=== PATIENT | male | born 2005 | race Caucasian/White ===

== ENCOUNTER 2024-08-13 17:29 | Emergency (ER) | payer BC, SELFPAY ==
[2024-08-13 17:41] VITALS: BP 133/82; PULSE 76; RESP 16; TEMP 36.9; O2SAT 98
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
== END 2024-08-13 18:25 | disposition short-term general hospital (02) ==
PROVIDERS: Emergency Provider Nurse Practitioner
DX: S00.83XA Contusion of other part of head, initial encounter (principal); W50.0XXA Accidental hit or strike by another person, initial encounter; Y93.71 Activity, boxing; H53.9 Unspecified visual disturbance
CPT/HCPCS: 99213; G0463

== ENCOUNTER 2024-08-13 18:46 | Emergency (ER) | payer BC, SELFPAY ==
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
[2024-08-13 18:47] VITALS: BP 129/54; PULSE 80; RESP 18; TEMP 36.7; O2SAT 100
--- NOTE | 2024-08-13 19:22 | PC.NURSE ---
Report received from WINSOME Linares. Assumed care of patient at this time.
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
[2024-08-13 20:07] VITALS: BP 150/72; PULSE 81; RESP 20; O2SAT 100
[2024-08-13 20:25] LABS: Estimated CRCL calculation 82 ml/min; Estimated Glomerular Filt Rate > 60
[2024-08-13 21:45] VITALS: PULSE 74; RESP 20
[2024-08-13 22:00] VITALS: PULSE 81; RESP 18; O2SAT 100
== END 2024-08-13 23:05 | disposition home or self-care (01) ==
PROVIDERS: Emergency Provider Registered Nurse
DX: S06.0X0A Concussion without loss of consciousness, initial encounter (principal); S05.12XA Contusion of eyeball and orbital tissues, left eye, initial encounter; S05.11XA Contusion of eyeball and orbital tissues, right eye, initial encounter; W51.XXXA Accidental striking against or bumped into by another person, initial encounter; Y93.71 Activity, boxing
CPT/HCPCS: 70460; 70486; 70491; 72125; 99284; Q9967

== ENCOUNTER 2024-08-15 11:25 | Emergency (ER) | payer BC, SELFPAY ==
--- NOTE | ~2024-08-15 | XR_ITS ---
EXAMINATION: XR chest 2V DATE: 08/15/2024 12:06 INDICATION: Cough and fever TECHNIQUE: PA and lateral views of the chest were obtained. COMPARISON: None FINDINGS: Small focal airspace opacity at the lateral right mid to lower lung zone on the frontal projection wi thout definitive correlate on the lateral projection. No pulmonary edema, pleural effusion or pneumot horax. The cardiomediastinal silhouette is normal. Mild thoracic kyphosis with mild anterior wedging of a few mid thoracic vertebral bodies. IMPRESSION: 1. Small focal airspace opacity in the right mid to lower lung which given age and the provided clini anali history is suspicious for pneumonia. Consider follow-up radiograph in a few weeks to document res olution. Reviewed, dictated and finalized at location B. IMPRESSION: 1. Small focal airspace opacity in the right mid to lower lung which given age and the provided clinical history is suspicious for pneumonia. Consider follow- up radiograph in a few weeks to document resolution.
--- NOTE | 2024-08-15 11:27 | ED.GENADULT ---
HPI - General Adult General Chief complaint: Upper Respiratory Infection Stated complaint: Fever Time Seen by Provider: 08/15/24 11:46 Source: patient, RN notes reviewed and old records reviewed Mode of arrival: ambulatory Limitations: no limitations History of Present Illness HPI narrative: 19-year-old male presents to the [facility] with complaints a fever. Patient was diagnosed with a concussion 2 days ago. Started yesterday with body aches, fevers reports 102. Also reports coughing Related Data Allergies Allergy/AdvReac Type Severity Reaction Status Date / Time No Known Allergies Allergy Verified 08/15/24 11:53 Review of Systems Review of Systems: All systems reviewed & are unremarkable except as noted in HPI and below Constitutional: Constitutional: Reports as per HPI, Reports body ache(s), Reports fatigue and Reports fever(s) Eyes: Eyes: Reports no additional eye complaints ENT: Reports system reviewed and no additional complaints, except as documented Cardiovascular: Cardiovascular: Reports no additional cardiovascular complaints, Denies chest pain and Denies dyspnea Respiratory: Respiratory: Reports as per HPI, Reports chest congestion, Reports cough and Reports dyspnea Gastrointestinal: Gastrointestinal: Reports no additional gastrointestinal complaints, Denies abdominal pain, Denies nausea and Denies vomiting Musculoskeletal: Musculoskeletal: Reports no additional musculoskeletal complaints Integumentary/Breasts: Skin/Breast: Reports system reviewed and no additional complaints, except as docu Neurologic: Reports system reviewed and no additional complaints, except as documented Psychiatric: Psychiatric: Reports no additional psychiatric complaints Allergic/Immunologic: Allergic/Immunologic: Reports no additional allergic/immunologic complaints PMFSH Comments At the time of my signature, I reviewed and agree with the nursing past medical, surgical, social, and family history. There is no relevant family history pertinent to the patient complaint. Exam Const: General: cooperative, no acute distress, well developed, alert, uncomfortable and well nourished Nutritional Appearance: well nourished Orientation/consciousness: patient oriented x3 Limitations: no limitations HENMT: Head: normal to inspection Ears: hearing grossly normal bilaterally and external ears normal Face/Nose/Sinus: Normal external nose present, Normal nares present, Normal nasal mucous membranes and turbinates present, normal facial exam and face symmetric Face and sinus: normal facial exam and face symmetric Mouth: Yes Normal oral and palatal mucosa present, Yes lip normal and Yes tongue normal Throat: posterior oropharynx normal, uvula midline and no uvular edema Eyes: General: appearance normal, both eyes and all related structures Alignment and Position: alignment normal Periorbital: periorbital findings normal Pupils: Equal, round and reactive pupils present EOM: EOMs intact bilaterally Neck: Neck: normal visual inspection, full ROM, no lymphadenopathy and no meningeal signs Chest: Chest palpation & inspection: normal inspection of the chest Resp: Effort & Inspection: normal respiratory effort and able to speak in complete sentences Auscultation: crackles on the right in the mid lung stark and in the lower lung stark, no rales, no rhonchi and no wheezes Cardio: Rate: regular rate Rhythm: regular rhythm Skin: General skin exam: normal color and no rashes or lesions noted Lesions: no lesions Rashes: no rashes Trauma: no lacerations or abrasions Wounds: no wounds Neuro: General: patient oriented x3, gait normal, tone normal, moves all extremities and no meningeal signs Cranial nerves: Yes Equal, round and reactive pupils present Cognition (Neuro): normal cognition Speech: normal speech Gait exam (Neuro): Normal gait present Extrem: General: normal to inspection, full ROM, capillary refill normal and normal gait Psych:
[2024-08-15 11:31] VITALS: BP 131/89; PULSE 101; RESP 16; TEMP 37.4; O2SAT 96
[2024-08-15 12:27] LABS: EDCOVIDSCREEN Negative (Negative); EDINFLUASCREEN Negative (Negative); EDINFLUBSCREEN Negative (Negative)
== END 2024-08-15 12:28 | disposition home or self-care (01) ==
PROVIDERS: Emergency Provider Nurse Practitioner
DX: J18.9 Pneumonia, unspecified organism (principal); Z20.822 Contact with and (suspected) exposure to COVID-19
CPT/HCPCS: 71046; 87635; 87804; 99213; G0463

== ENCOUNTER 2024-08-26 10:16 | Outpatient (CLI) | payer BC, SELFPAY ==
--- NOTE | ~2024-08-26 | XR_ITS ---
EXAMINATION: XR chest 2V 08/26/2024 10:36 INDICATION: Pneumonia PROCEDURE: 2 view chest COMPARISON: 08/15/2024 FINDINGS: The lungs are clear. The cardiomediastinal silhouette is within normal limits. There are no pleural effusions. There is no pneumothorax suspected. IMPRESSION: 1: NO ACUTE CARDIOPULMONARY DISEASE. Reviewed, dictated and finalized at location B.
== END 2024-08-26 10:17 | disposition home or self-care (01) ==
PROVIDERS: PCP Family Medicine; Visit Provider Family Medicine
DX: J18.9 Pneumonia, unspecified organism (principal)
CPT/HCPCS: 71046